=== PATIENT | male | born 1985 | race American Indian/Alaskan Native ===

== ENCOUNTER 2021-12-04 17:19 | Emergency (ER) | payer SELFPAY ==
[2021-12-04 22:24] LABS: Bacteria,Urine 1+ /HPF (Negative); Hyaline Casts,Urine 16 /LPF; Mucus,Urine FEW /HPF
[2021-12-04 22:31] LABS: Color,Urine Yellow (Yellow)
[2021-12-04 22:54] LABS: Basophils % (Auto) 0.2 % (0.0-1.8); Hematocrit 46.4 % (35.5-45.6); Hemoglobin 15.9 gm/dl (11.8-15.2); Lymphocytes % (Auto) 7.8 % (13.4-35.0); Mean Corpuscular HGB Conc 34 % (32-34); Mean Corpuscular Volume 84 fl (84-94); Monocytes # (Auto) 0.8 K/mm3 (0.0-0.8); Monocytes % (Auto) 6.2 % (0.0-7.3); Platelet Count 233 K/mm3 (140-440); Red Blood Count 5.52 M/mm3 (3.65-5.03); Red Cell Distribution Width 13.5 % (13.2-15.2)
[2021-12-04 23:11] LABS: Calcium 9.4 mg/dL (8.4-10.2)
--- NOTE | 2021-12-05 05:54 | Cat Scan Report ---
CT HEAD WITHOUT CONTRAST INDICATION / CLINICAL INFORMATION: altered mental status. TECHNIQUE: All CT scans at this location are performed using CT dose reduction for ALARA by means of automated exposure control. COMPARISON: None available. FINDINGS: BRAIN PARENCHYMA: No acute intracranial hemorrhage. No evidence of recent infarct. No mass effect or midline shift. VENTRICULAR SYSTEM/EXTRA-AXIAL SPACES: Ventricles are normal for age. No extra-axial fluid collection . ORBITS: Normal as visualized. SKELETAL SYSTEM/SOFT TISSUES: Normal bones and soft tissues. PARANASAL SINUSES/MASTOID AIR CELLS: Small air-fluid levels are seen in the maxillary sinuses without other significant abnormalities. ADDITIONAL FINDINGS: None. IMPRESSION: 1. No acute intracranial abnormality. Signer Name: Kris Aragon MD Signed: 12/05/2021 5:50 AM Workstation Name: [id number]
--- NOTE | 2021-12-05 06:34 | Emergency Department Report ---
ED General Adult HPI - General Chief complaint: Abdominal Pain Stated complaint: LOSS MEMORIES PUI?: No Time Seen by Provider: 12/05/21 05:00 Source: patient, family Mode of arrival: Ambulatory Limitations: No Limitations - History of Present Illness Initial comments: Patient is a 33-year-old male who was recently released from penitentiary. His mother presents with him and states that he seemed fine when she brought him home but then she went to work yesterday and he went with some friends last night. Today when she woke him up he was unaware that he had been in penitentiary and seemed confused. Mother believes that he was using alcohol and possibly drugs. Patient admits to work marijuana and alcohol only. He cannot remember the events of last night, but does know the date and where he is. Denies any fevers chills nausea vomiting paresthesias pain headaches visual changes focal weakness slurred speech or dysphagia. No abdominal pain chest pain shortness of breath or palpitations. - Related Data Allergies Allergy/AdvReac Type Severity Reaction Status Date / Time No Known Allergies Allergy Unverified 12/04/21 20:16 ED Review of Systems ROS: Stated complaint: LOSS MEMORIES Other details as noted in HPI Comment: All other systems reviewed and negative Constitutional: denies: chills, fever Eyes: vision change ENT: denies: throat pain, dental pain Respiratory: denies: cough, shortness of breath Cardiovascular: denies: chest pain, palpitations, edema Endocrine: denies: intolerance to cold, intolerance to heat, increased hunger, increased thirst Gastrointestinal: denies: abdominal pain, nausea, vomiting, diarrhea, constipation Genitourinary: denies: urgency, dysuria, frequency Musculoskeletal: denies: back pain, myalgia Skin: denies: rash, lesions, change in color Neurological: denies: headache, weakness, numbness, paresthesias, confusion, abnormal gait Psychiatric: denies: anxiety, depression, auditory hallucinations, visual hallucinations, homicidal thoughts, suicidal thoughts Hematological/Lymphatic: denies: easy bleeding, easy bruising ED Past Medical Hx - Past Medical History Previous Medical History?: Yes Hx Hypertension: Yes - Surgical History Past Surgical History?: No - Family History Family history: no significant - Social History Smoking Status: Current Every Day Smoker Substance Use Type: Alcohol, Marijuana ED Physical Exam - General Limitations: No Limitations General appearance: alert, in no apparent distress (Answers questions appropriately) - Head Head exam: Present: atraumatic, normocephalic - Eye Eye exam: Present: normal appearance, PERRL, EOMI. Absent: scleral icterus, conjunctival injection, nystagmus, periorbital swelling, periorbital tenderness - ENT ENT exam: Present: mucous membranes moist, TM's normal bilaterally - Neck Neck exam: Present: normal inspection, full ROM. Absent: tenderness, meningismus - Respiratory Respiratory exam: Present: normal lung sounds bilaterally. Absent: respiratory distress, wheezes, rales, rhonchi - Cardiovascular Cardiovascular Exam: Present: regular rate, normal rhythm, normal heart sounds - GI/Abdominal GI/Abdominal exam: Present: soft, normal bowel sounds. Absent: distended, tenderness, guarding, rebound, rigid, organomegaly, mass - Extremities Exam Extremities exam: Present: normal inspection, full ROM, normal capillary refill. Absent: pedal edema - Back Exam Back exam: Present: normal inspection, full ROM. Absent: tenderness - Neurological Exam Neurological exam: Present: alert, oriented X3, CN II-XII intact, normal gait, reflexes normal. Absent: motor sensory deficit - Psychiatric Psychiatric exam: Present: normal affect, normal mood. Absent: homicidal ideation, suicidal ideation - Skin Skin exam: Present: warm, dry, intact, other (There is some dried blood under his nose but no evidence of open wound, epistaxis, or tenderness) ED Course Vital Signs 12/04/21 20:16 Temperature 98.8 F Pulse Rate 103 H Respiratory 18 Rate Blood Pressure 151/90 O2 Sat by Pulse 98 Oximetry - Reevaluation(s) Reevaluation #1: 12/05/21 07:34 Patient remains ambulatory and answering questions appropriately. CT NAF. ED Medical Decision Making - Lab Data Result diagrams: 12/04/21 22:36 12/04/21 22:36 - Radiology Data Radiology results: report reviewed [facility] [address] [place] [address] Cat Scan Report Signed Patient: IRENE SNOW MR#: [id number] 0 : 03/22/1988 Acct:[id number] Age/Sex: 33 / M ADM Date: 12/04/21 Loc: ED Attending Dr: Ordering Physician: BRITANY ALANIZ Date of Service: 12/05/21 Procedure(s): CT head/brain wo con Accession Number(s): [id number] cc: BRITANY ALANIZ CT HEAD WITHOUT CONTRAST INDICATION / CLINICAL INFORMATION: altered mental status. TECHNIQUE: All CT scans at this location are performed using CT dose reduction for ALARA by means of automated exposure control. COMPARISON: None available. FINDINGS: BRAIN PARENCHYMA: No acute intracranial hemorrhage. No evidence of recent infarct. No mass effect or midline shift. VENTRICULAR SYSTEM/EXTRA-AXIAL SPACES: Ventricles are normal for age. No extra- axial fluid collection. ORBITS: Normal as visualized. SKELETAL SYSTEM/SOFT TISSUES: Normal bones and soft tissues. PARANASAL SINUSES/MASTOID AIR CELLS: Small air-fluid levels are seen in the maxillary sinuses without other significant abnormalities. ADDITIONAL FINDINGS: None. IMPRESSION: 1. No acute intracranial abnormality. Signer Name: Kris Aragon MD Signed: 12/05/2021 5:50 AM Workstation Name: [id number] Transcribed By: MN Dictated By: Kris Aragon MD Electronically Authenticated By: Kris Aragon MD Signed Date/Time: 12/05/21549 DD/ TD/TT: - Medical Decision Making Case discussed with Dr. Smith. We will have him follow-up with neuropsych outpatient as well as primary care for his azotemia. - Differential Diagnosis Altered mental status. Psychiatric versus substance abuse etiology Critical care attestation.: If time is entered above; I have spent that time in minutes in the direct care of this critically ill patient, excluding procedure time. ED Disposition Clinical Impression: Altered mental status, Substance abuse Disposition: 01 HOME / SELF CARE / HOMELESS Is pt being admited?: No Condition: Stable Instructions: Substance Use Disorder and Mental Illness Additional Instructions: Return if any worsening of symptoms Referrals: JIMENEZ RIVERA MD [Staff Physician] - 3-5 Days KEM MONTES MD [Referring] - 3-5 Days Time of Disposition: 09:28
[2021-12-05 07:55] LABS: Amphetamine Screen,Urine Negative; Benzodiazepines Screen,Urine Negative; Cocaine Screen,Urine Negative; Methadone Screen,Urine Negative; Opiate Screen,Urine Negative
[2021-12-05 08:10] LABS: Cannabinoid Screen,Urine Positive
[2021-12-05 10:03] VITALS: BP 128/94
== END 2021-12-05 10:03 | disposition home or self-care (01) ==
LOC: ED 17:19
DX: R41.82 Altered mental status, unspecified (principal); F19.10 Other psychoactive substance abuse, uncomplicated; I10 Essential (primary) hypertension; F17.200 Nicotine dependence, unspecified, uncomplicated
CPT/HCPCS: 36415; 70450; 80048; 80307; 80320; 81001; 85025; 99284; G0480